=== PATIENT | female | born 1975 | race Caucasian/White ===

== ENCOUNTER 2018-05-30 07:12 | Observation (INO) | payer OTHER ==
[~2018-05-30 07:12] MED LIST: Buffered Lidocaine 0.9% SYRIN* 5 ML/SYR SYRINGE INTRADERM ONE; Dexamethasone IV* 4 MG/ML 1 ML (4 MG) IV SLOW PU ONE; Famotidine IV* 10 MG/ML 2 ML (20 mg) IV ONE
[2018-05-30] MEDS ORDERED: Famotidine IV* 10 MG/ML 2 ML (20 mg) ONE (07:19)
[2018-05-30] MEDS ORDERED: Dexamethasone IV* 4 MG/ML 1 ML (4 MG) ONE (07:19)
[2018-05-30] MEDS ORDERED: ceFAZolin 2 GM in NS PREMIX(*) 2 GM/100 ML BAG IVPB ONE (07:20)
[2018-05-30] MEDS ORDERED: Lidocaine 1% MPF wEPI 200,000* 30 ML SDV ONE (08:06)
[2018-05-30] MEDS ORDERED: Thrombin 5,000 UNITS* 1 APPLIC KIT - topical use - TOPICAL ONE (08:06)
[2018-05-30] MEDS ORDERED: Bacitracin IV* 50,000 UNITS INJ ONE (08:07)
[2018-05-30] MEDS ORDERED: Propofol* 10 MG/ML 20 ML BTL IV PUSH ONE (08:19)
[2018-05-30] MEDS ORDERED: Midazolam* 1 MG/ML 5 ML VIAL (5 MG) ONE (08:19)
[2018-05-30] MEDS ORDERED: fentaNYL* 50 MCG/ML 5 ML VIAL (250 MCG VIAL) ONE (08:19)
[2018-05-30] MEDS ORDERED: Ondansetron INJ* 2 MG/ML VIAL ONE (08:19)
[2018-05-30] MEDS ORDERED: Atracurium* 10 MG/ML 10 ML VIAL ONE (08:19)
[2018-05-30] MEDS ORDERED: Lidocaine 2% PF * 5 ML VIAL ONE (08:19)
[2018-05-30] MEDS ORDERED: EPHEDrine (Pressors)* 50 MG/ML VIAL ONE (09:14)
[2018-05-30] MEDS ORDERED: DiMENhydriNATE IV* 50 MG/ML VIAL IV PUSH PRN (09:46)
[2018-05-30] MEDS ORDERED: Naloxone* 0.4 MG/ML 1 ML VIAL IV PRN (09:46)
[2018-05-30] MEDS ORDERED: HYDROmorphone INJ1* 1 MG/ML SYRINGE IV PRN (09:46)
[2018-05-30] MEDS ORDERED: Scopolamine 1.5 mg* PATCH TRANSDERM PRN (09:46)
[2018-05-30] MEDS ORDERED: oxyCODONE/Acetamin 5/325 MG* TAB PO PRN ×2 (09:46→21:43)
[2018-05-30] MEDS ORDERED: fentaNYL* 50 MCG/ML 2 ML VIAL (100 MCG VIAL) IV PRN (09:46)
[2018-05-30] MEDS ORDERED: Ondansetron INJ* 2 MG/ML VIAL IV PRN (09:46)
[2018-05-30] MEDS ORDERED: fentaNYL* 50 MCG/ML 2 ML VIAL (100 MCG VIAL) ONE (09:57)
[2018-05-30] MEDS ORDERED: Magnesium Hydroxide LIQ* 30 ML UDC PO PRN (11:03)
[2018-05-30] MEDS ORDERED: HYDROcodone/ACETAMIN 5-325 MG* 1 TAB PO PRN ×2 (11:03)
--- NOTE | 2018-05-30 11:11 | RAD ---
INDICATION: Lumbar discectomy COMPARISONS: MRI dated May 15, 2018 TECHNIQUE: Fluoroscopy was provided for a surgical procedure. Total fluoroscopy time is: 17.7 seconds FINDINGS: Spot images demonstrate a metallic probe at L5-S1 counting from L5 as the last lumbar type vertebral body. IMPRESSION: FLUOROSCOPY WAS PROVIDED FOR A SURGICAL PROCEDURE CPT II Codes: G9500
[2018-05-30] MEDS ORDERED: Cyclobenzaprine TAB* 10 MG PO PRN (11:55)
[2018-05-30] MEDS ORDERED: Zolpidem TAB* 10 MG PO PRN (21:00)
[2018-05-30] MEDS ORDERED: Ketorolac INJ* 30 MG/ML 1 ML VIAL IV PRN (21:05)
[2018-05-30] MEDS: Diazepam TAB(*) 5 MG PO PRN (22:01)
[2018-05-30] MEDS: oxyCODONE/Acetamin 5/325 MG* TAB PO PRN (22:01)
[2018-05-30] MEDS ORDERED: NS 0.9% 1000 ML* 1,000 ML IV ONE (22:54)
[2018-05-31 00:09] LABS: ABS Basophils 0 10^3/ul (0-0.2); ABS Eosinophils 0 10^3/ul (0-0.6); ABS Lymphocytes 1.2 10^3/ul (1.0-4.8); ABS Monocytes 0.9 10^3/ul (0-0.8); ABS Neutrophils 8.8 10^3/ul (1.5-7.7); ABS Nucleated RBC 0 10^3/ul; Eosinophil % 0 % (0-6); Hematocrit 32 % (35-47); Hemoglobin 11.1 g/dl (12.0-16.0); Mean Corpuscular HGB Conc 35 g/dl (31-36); Mean Corpuscular Hemoglobin 32 pg (27-31); Mean Corpuscular Volume 91 fL (80-97); Mean Platelet Volume 10.8 um3 (7.4-10.4); Nucleated Red Blood Cells % 0; Platelet Count 117 10^3/ul (150-450); Red Blood Count 3.48 10^6/ul (4.00-5.40); Red Cell Distribution Width 12 % (10.5-15); White Blood Count 10.9 10^3/ul (3.5-10.8)
--- NOTE | 2018-05-31 02:32 | CONS ---
CC: Dr. Val Hamilton; Dr. Delaney * CONSULTATION REPORT: DATE OF CONSULT: 05/30/18 PRIMARY CARE PROVIDER: Dr. Val Hamilton. MY ATTENDING PHYSICIAN WHILE IN THE HOSPITAL: Marianna Zaldivar DO (report dictated by Otis Velasco NP). REQUESTING PHYSICIAN IN CONSULT: Dr. Delaney. REASON FOR MEDICAL CONSULT: Rash. HISTORY OF PRESENT ILLNESS: Mrs. Almendarez is a 43-year-old female patient who previously was healthy with the exception that she has a history of PFO. She presented to Dr. Delaney' care today for an elective diskectomy at L5-S1, which she underwent today. Postoperatively, she has been having a fair amount of pain near the incision site and having some pain going down her right lower extremity, but she says that this has somewhat improved from what she has been dealing with for sometime about 45 minutes after taking some pain medications, she was on [place], but she normally takes Percocet at home. She also took a Flexeril 45 minutes or so. After taking this, she noted that her face had become flushed, particularly in her cheeks area and around her nose and that she said she felt hot. She denied having any sores in her mouth. Denied having any other areas of erythema. She also previously to having this had just washed her face with a washcloth because she had been crying because she was in so much pain. She says that there is no itching or sensation of itching. She says that she does not know of any spread of the rash anywhere else to her. She denies having any irritation to her eyes and denied having any open sores again in the mouth and says that she is not having any trouble breathing and says that she does not feel like the throat is closing. There was concern because of the rash and we were asked to evaluate. PAST MEDICAL HISTORY: Significant for a PFO. PAST SURGICAL HISTORY: She has had an appendectomy and tonsillectomy and now she has had a L5-S1 diskectomy. MEDICATIONS: Home meds include: 1. Percocet two tablets every 4 hours as needed. 2. Lidoderm one application topically as instructed. 3. Diazepam 5 mg p.o. daily. 4. Valacyclovir 1000 mg p.o. as directed. ALLERGIES TO MEDICATIONS: Include no known drug allergies. FAMILY HISTORY: Reviewed. She said that her parents do not have any trouble with heart disease. They have never had strokes or cancers. She says both her parents are healthy. SOCIAL HISTORY: She does not smoke. She is fairly active. She is a [employer] of a local [employer]. She is . Surrogate decision maker is her . REVIEW OF SYSTEMS: There is no documented fever. She denied having any significant weight change. There is no double vision. She denies having any ear discharge. There is no rhinorrhea, no sore throat, and no thyroid enlargement. She denied having any chest pain. There is no orthopnea. There is no exertional dyspnea. There was no abdominal pain. There is no nausea, no vomiting. There is no dysuria. There is no frequency. There is no seizure, no loss of consciousness. Again, there is no pruritus reported or skin ulcerations. Review of 14 systems completed and all others negative. PHYSICAL EXAM: Blood pressure 117/58 with a pulse of 57, respirations 18, O2 saturation 97%, and temperature of 98.0. General: At this time, Mrs. Almendarez is a 43-year-old female patient. She appears to be well nourished and well developed. She does not appear to be in any acute distress. HEENT: Head atraumatic and normocephalic. Eyes: EOMs are intact. Sclerae anicteric and not pale. Neck was supple. Throat: Oral mucosa appears to be moist. No oropharyngeal erythema. Heart sounds S1 and S2. Regular rate and rhythm. No murmurs, rubs, or gallops. Lungs: Clear to auscultation. No wheezes, rales, or rhonchi. Abdomen: Soft, flat, and nontender. Bowel sounds are present. Extremities: Pulses were 2+ throughout. She is moving all 4 extremities with 5 /5 strength. Neurologically, she is awake, alert, and oriented x3. She had no gross focal deficits. Skin: She does have a blanchable erythema noted to the cheeks and across the bridge of the nose. I did not appreciate any papules or pustules. At this point, she has no other areas of rash. She has an incision to the lower lumbar spine, which is covered with dressing, clean, dry, and intact. LABORATORY DATA: Preop WBC 7.5, RBC of 4.45, hemoglobin of 14.0, hematocrit of 41, platelet count 160. INR was 1.1. Sodium of 140, potassium 4.5, chloride 106, bicarb 27, BUN 9, creatinine 0.64. Urine preop negative. Old medical records reviewed. ASSESSMENT AND PLAN: Mrs. Almendarez is a 43-year-old female patient coming into Dr. Delaney' service for an elective L5-S1 diskectomy. Postoperatively, it was noted that she had a rash, so we were asked to evaluate in consult. Recommendations at this point are: 1. Status post L5-S1 diskectomy, defer the management to Dr. Delaney. 2. Rash. Etiology is unclear. Again, there is no pruritus associated with this. She is sparing her mucus membranes. It is blanchable. I question if this is secondary to irritation from detergents that may have been in the washcloth, possibly reaction to the medications. I have switched her back to her Valium and her Percocet. I would like to observe and monitor should it spread out. I have a low threshold to start antihistamines and possible steroids. I will check a CBC, CMP, ESR, and CRP tomorrow and I will continue to monitor, so probably she may need followup. If symptoms persist, follow up with her PCP and possible Dermatology. At this point, there is again no blistering noted. No sloughing of the skin, again it is blanchable, so we will continue to monitor. 3. DVT prophylaxis. Defer to the primary team. 4. Fluids, electrolytes, and nutrition. She can have a regular diet. 5. Code status. Full code. TIME SPENT: Time spent on consult 60 minutes, greater than half time was spent [id number] with the patient obtaining my history and physical; other half time spent going over the plan of care with the patient and implementing the plan of care. I discussed the plan of care with my attending Dr. Zaldivar, who is in agreement. OTIS VELASCO, CANDICE [id number]/[facility] #: [id number] THADDEUS
--- NOTE | 2018-05-31 04:36 | OP ---
DATE OF OPERATION: 05/30/18 - ROOM #347 DATE OF : 77 SURGEON: Edgar Delaney MD POWER SCREWDRIVER OPERATOR: Yanna Hutson PRE-OP DIAGNOSIS: Right L5-S1 herniated nucleus pulposus. POST-OP DIAGNOSIS: Right L5-S1 herniated nucleus pulposus. OPERATIVE PROCEDURE: The patient underwent a right L5-S1 microdiskectomy. ESTIMATED BLOOD LOSS: 10 mL. COMPLICATIONS: None. INDICATIONS: The patient is a very pleasant 43-year-old female with complaints of back pain radiating to the right lower extremity with MRI findings consistent with a large right L5-S1 herniated nucleus pulposus. After failing conservative treatment modalities, the patient was offered the option of surgical intervention in the form of right L5-S1 diskectomy. Risks and benefits , expectations and possible complications of the procedure were discussed in detail with the patient and her with complications including, but not limited to, bleeding, infection, risk of injury to adjacent structures, paralysis, , need for additional procedures, anesthesia risk, stroke, blindness, cancer, instability, spinal fluid leak and need for prolonged ICU stay. The patient understood that her condition might not improve and in fact may get worse after the surgery and that she may need to have additional procedure in the future. She also understood that operative plan may be modified according to the intraoperative findings and conditions. DESCRIPTION OF PROCEDURE: The patient was brought to the operating room and was placed under general anesthesia by the anesthesia team. She was carefully positioned prone on the Arnold frame on the José Miguel table and all bony prominences were meticulously padded. Her skin was prepped and draped in the standard fashion. After appropriate surgical pause and patient identification, the above surgical level was identified with the use of intraoperative fluoroscopic imaging. A small paramedian incision towards the right of the midline was marked on the skin over the L5-S1 disk space and the skin was infiltrated with local anesthetic. A #10 surgical blade was used to incise the skin. The incision was carried down to the dorsal fascia and over a series of dilators, the METRx tubular retractor system was introduced. Operative films confirmed excellent placement of the retractor system. The intraoperative microscope was brought into the field and the right lamina of L5 and the middle part of L5-S1 facet was carefully exposed. A small laminotomy of the right lamina of L5 and a removal of a very small portion of the medial facet was performed with the use of high-speed drill. The ligamentum flavum was gently removed with Kerrison punches in the thecal sac and the right S1 nerve root was readily identified. After gentle retraction medially, a large disk herniation was identified which caused significant pressure on the nerve root, as expected from the preoperative MRI. After gentle retraction of the thecal sac and the nerve root medially with a nerve root retractor, a fragmentectomy and diskectomy was performed with the use of pituitary rongeurs after incising the annulus fibrosus with #10 surgical blade. Intraoperative fluoroscopic imaging confirmed the appropriate surgical level. After copious irrigation and confirmation of meticulous hemostasis and meticulous inspection of the wound, the tubular retractor was gently removed. After confirmation of meticulous hemostasis and copious irrigation, the wound was then closed by layers with 0 interrupted Vicryl suture to approximate the dorsal fascia, while the subcutaneous tissue was approximated with interrupted 2-0 Vicryl sutures. The skin was covered with Dermabond. At the end of the procedure, all counts were reported to be correct. The patient remained hemodynamically stable throughout the case. The patient was then turned supine, was extubated and was transferred to Recovery in excellent condition. [id number]/[facility] #: [id number] MTDMaye
[2018-05-31] MEDS: oxyCODONE/Acetamin 5/325 MG* TAB PO PRN ×5 (05:15→21:38)
[2018-05-31 05:57] LABS: ABS Basophils 0 10^3/ul (0-0.2); ABS Eosinophils 0.1 10^3/ul (0-0.6); ABS Lymphocytes 1.8 10^3/ul (1.0-4.8); ABS Monocytes 0.9 10^3/ul (0-0.8); ABS Neutrophils 8.5 10^3/ul (1.5-7.7); ABS Nucleated RBC 0 10^3/ul; Eosinophil % 0.5 % (0-6); Hematocrit 33 % (35-47); Hemoglobin 11.4 g/dl (12.0-16.0); Mean Corpuscular HGB Conc 35 g/dl (31-36); Mean Corpuscular Hemoglobin 31 pg (27-31); Mean Corpuscular Volume 91 fL (80-97); Mean Platelet Volume 11.6 um3 (7.4-10.4); Nucleated Red Blood Cells % 0; Platelet Count 124 10^3/ul (150-450); Red Blood Count 3.65 10^6/ul (4.00-5.40); Red Cell Distribution Width 12 % (10.5-15); White Blood Count 11.2 10^3/ul (3.5-10.8)
[2018-05-31 06:14] LABS: EGFR Non-African American 126.5 (>60)
--- NOTE | 2018-05-31 11:31 | PN ---
Progress Note - Progress Note Date of Service: 05/31/18 SOAP: Subjective: []No events ON. Tolerated procedure well yesterday. Preop RLE pain and weakness resolved. Some c/o incisional pain. Ambulates, Voids, Tolerates PO well. Reported rash yesterday. IM consulted, Appreciate care. No rash this am. Objective: []VSS, Afebrile. Wound s,c,d AAOx3 RENEE, CN II-XII grossly intact. Motor 5/5 all extremities. Sensory grossly intact to light touch. Assessment: []43 yof POD#1 Rt L5-S1 MIS discectomy Plan: []Monitor VS, Neurochecks Encourage ambulation. Emphasised importance of early ambulation. PT consulted. Encourage use of IS. Monitor BP. DVT prophylaxis. DC planning. Appreciate IM care. Van Delaney MD
--- NOTE | 2018-05-31 17:30 | PN ---
Subjective Date of Service: 05/31/18 Interval History: Patient is in significant pain in back without radiculopathy. Patient states pain is minimal at rest but will go up to 9/10 with walking and is only at incision site. Patient has been getting dizzy and feeling fatigued when standing. Patient denies CP, SOB, N/V, abdominal pain, diarrhea, dysuria, palpitations, or other pain. Patient's rash has entirely resolved. Family History: Unchanged from Admission Social History: Unchanged from Admission Past Medical History: Unchanged from Admission Objective Active Medications: Diazepam (Valium Tab(*)) 5 mg PO Q8H PRN PRN Reason: ANXIETY Last Admin: 05/30/18 22:01 Dose: 5 mg Lactated Ringer's (Lactated Ringers 1000 Ml Bag*) 1,000 mls @ 0 mls/hr IV WIDE OPEN ETHAN Stop: 05/31/18 23:59 Last Admin: 05/31/18 09:44 Dose: 999 mls/hr Lactated Ringer's (Lactated Ringers 1000 Ml Bag*) 1,000 mls @ 75 mls/hr IV PER RATE [facility] Last Admin: 05/31/18 11:24 Dose: 75 mls/hr Ketorolac Tromethamine (Toradol Inj*) 30 mg IV ONCE PRN PRN Reason: PAIN Magnesium Hydroxide (Milk Of Magnesia Liq*) 30 ml PO DAILY PRN PRN Reason: CONSTIPATION Oxycodone/Acetaminophen (Percocet 5/325 Tab*) 2 tab PO Q4H PRN PRN Reason: PAIN Last Admin: 05/31/18 13:46 Dose: 2 tab Oxycodone/Acetaminophen (Percocet 5/325 Tab*) 1 tab PO Q4H PRN PRN Reason: PAIN Pharmacy Profile Note (Scopolamine Patch Remove*) 1 note PATCH OFF Q72H [facility] Scopolamine (Transderm-Scop 1.5 Mg Patch*) 1 patch TRANSDERM Q72H PRN PRN Reason: Nausea/Vomiting Zolpidem Tartrate (Ambien Tab*) 10 mg PO BEDTIME PRN PRN Reason: INSOMNIA Vital Signs - 8 hr 05/31/18 05/31/18 05/31/18 09:30 09:44 09:55 Temperature Pulse Rate Respiratory 16 16 16 Rate Blood Pressure (mmHg) O2 Sat by Pulse 100 Oximetry 05/31/18 05/31/18 05/31/18 12:04 12:06 12:08 Temperature 97.5 F Pulse Rate 57 64 81 Respiratory 16 16 17 Rate Blood Pressure 104/59 104/69 105/68 (mmHg) O2 Sat by Pulse 97 100 100 Oximetry 05/31/18 05/31/18 05/31/18 12:33 13:46 15:17 Temperature 97.5 F Pulse Rate 48 Respiratory 16 16 16 Rate Blood Pressure 95/57 (mmHg) O2 Sat by Pulse 98 Oximetry 05/31/18 16:00 Temperature Pulse Rate Respiratory Rate Blood Pressure (mmHg) O2 Sat by Pulse 98 Oximetry Oxygen Devices in Use Now: None Appearance: Patient is a 43yo female who appears stated age and is sitting in the bed in NAD. Eyes: No Scleral Icterus, PERRLA Ears/Nose/Mouth/Throat: NL Teeth, Lips, Gums, Clear Oropharnyx, Mucous Membranes Moist Neck: NL Appearance and Movements; NL JVP, Trachea Midline Respiratory: Symmetrical Chest Expansion and Respiratory Effort, Clear to Auscultation Cardiovascular: NL Sounds; No Murmurs; No JVD, RRR, No Edema Abdominal: NL Sounds; No Tenderness; No Distention, No Hepatosplenomegaly Lymphatic: No Cervical Adenopathy Extremities: No Edema, No Clubbing, Cyanosis Skin: No Nodules or Sclerosis, - - Lumbar incision covered with CDI dressing. Neurological: Alert and Oriented x 3, NL Sensation, NL Muscle Strength and Tone , - - CN II-XII intact. Normal reflexes. Result Diagrams: 05/31/18 05:19 05/31/18 05:18 Assess/Plan/Problems-Billing Assessment: Patient is a 43yo female with a PMH only for PFO and lumbar radiculopathy who is S/P microdiscectomy and is progressing with a post-op course complicated by hypotension and transient rash. - Patient Problems (1) Post-operative state Current Visit: Yes Status: Acute Code(s): Z98.890 - OTHER SPECIFIED POSTPROCEDURAL STATES SNOMED Code(s): 81425861 Comment: - Management per primary team - PT, Bowel regimen, pain control - Progressing well. (2) Hypotension Current Visit: Yes Status: Acute Comment: - Likely post-operative complication from medications - Continue fluids. - Patient is not orthostatic - Patient is symptomatic and it is interfering with post-op progression. (3) Rash Current Visit: Yes Status: Acute Code(s): R21 - RASH AND OTHER NONSPECIFIC SKIN ERUPTION SNOMED Code(s): 634121041 Comment: - Transient, probably drug or contact related - Monitor for recurrence, no specific treatment. (4) PFO (patent foramen ovale) Current Visit: Yes Status: Acute Code(s): Q21.1 - ATRIAL SEPTAL DEFECT SNOMED Code(s): 684127958 Comment: - Noted (5) DVT prophylaxis Current Visit: Yes Status: Acute Code(s): EWU5918 - SNOMED Code(s): 480956467 Comment: - SCDs and ambulation (6) Full code status Current Visit: Yes Status: Acute Code(s): Z78.9 - OTHER SPECIFIED HEALTH STATUS SNOMED Code(s): 174714689 Status and Disposition: Inpatient.
[2018-05-31] MEDS: Diazepam TAB(*) 5 MG PO PRN (21:38)
[2018-06-01] MEDS: oxyCODONE/Acetamin 5/325 MG* TAB PO PRN ×3 (02:22→12:10)
[2018-06-01 06:07] LABS: ABS Basophils 0 10^3/ul (0-0.2); ABS Eosinophils 0.1 10^3/ul (0-0.6); ABS Lymphocytes 3.1 10^3/ul (1.0-4.8); ABS Monocytes 0.7 10^3/ul (0-0.8); ABS Neutrophils 4.8 10^3/ul (1.5-7.7); ABS Nucleated RBC 0 10^3/ul; Eosinophil % 0.9 % (0-6); Hematocrit 35 % (35-47); Lymphocyte % 35.8 % (25-47); Mean Corpuscular HGB Conc 34 g/dl (31-36); Mean Corpuscular Hemoglobin 32 pg (27-31); Mean Corpuscular Volume 93 fL (80-97); Mean Platelet Volume 11.3 um3 (7.4-10.4); Nucleated Red Blood Cells % 0.1; Platelet Count 131 10^3/ul (150-450); Red Blood Count 3.74 10^6/ul (4.00-5.40); Red Cell Distribution Width 12 % (10.5-15); White Blood Count 8.7 10^3/ul (3.5-10.8)
[2018-06-01 06:26] LABS: EGFR Non-African American 107.6 (>60)
[2018-06-01 07:39] VITALS: BP 93/53
--- NOTE | 2018-06-01 11:53 | PN ---
Progress Note - Progress Note Date of Service: 06/01/18 SOAP: Subjective: []No events ON. Feels much better today. Preop RLE pain and weakness resolved. Some c/o incisional pain. Ambulates well, Voids, Tolerates PO well.Flatus +. No rash this am. Objective: [] VSS, Afebrile. Wound s,c,d AAOx3 RENEE, CN II-XII grossly intact. Motor 5/5 all extremities. Sensory grossly intact to light touch. Assessment: []43 yof POD#2 Rt L5-S1 MIS discectomy Plan: [] Monitor VS, Neurochecks Encourage ambulation. IS. DC today. Appreciate IM care. Van Delaney MD
--- NOTE | 2018-06-01 15:10 | DS ---
DISCHARGE SUMMARY: DATE OF ADMISSION: 05/30/18 DATE OF DISCHARGE: 06/01/18 ADMISSION DIAGNOSIS: Right L5-S1 herniated nucleus pulposus. DISCHARGE DIAGNOSES: Right L5-S1 herniated nucleus pulposus. PROCEDURE: The patient underwent right L5-S1 microdiskectomy. DISPOSITION: Home CONDITION ON DISCHARGE: Good. HOSPITAL COURSE: The patient is a very pleasant 43-year-old female with complaints of back pain radiating to the right lower extremity. The patient was found to have right-sided radiculopathy and MRI finding consistent with a large right L5-S1 herniated nucleus pulposus. After failing conservative treatment modalities, the patient was offered the option of surgical intervention and she underwent the right L5-S1 microdiskectomy on 05/30/18. She tolerated the procedure well, was able to be transferred to the floor. The patient continued to improve. Because of presence of the facial rash, Internal Medicine was consulted. The patient improved, was able to ambulate and tolerate p.o. well and void. Her preoperative right lower extremity pain had completely resolved, as well as her weakness and numbness. Because of her relatively low pressure, she was given IV fluids. The patient underwent evaluation by Physical Therapy and on postoperative day 2, she was doing very well, was able to ambulate without difficulties, and was anxious to go home. The patient was cleared by Internal Medicine also for her discharge and she was given full discharge instructions, as well as prescriptions for pain medications and muscle relaxants were sent electronically to [facility]. DISPOSITION: Home. [id number]/[facility] #: [id number] MTDD
[2018-06-02] MEDS ORDERED: Scopolamine PATCH Remove* 1 NOTE MISC PATCH OFF SCH (09:24)
== END 2018-06-01 12:46 | disposition home or self-care (01) ==
LOC: OR 07:12 → SSU 12:08
PROVIDERS: ADMIT Neurological Surgery; ATTEND Neurological Surgery
PROC: 0SB20ZZ Excision of Lumbar Vertebral Disc, Open Approach (ICD-10-PCS; 2018-05-30)
PROC: 01NB0ZZ Release Lumbar Nerve, Open Approach (ICD-10-PCS; principal; 2018-05-30 08:30)
DX: M51.17 Intervertebral disc disorders with radiculopathy, lumbosacral region (principal); I95.9 Hypotension, unspecified; R21 Rash and other nonspecific skin eruption; Q21.1 Atrial septal defect; Z79.899 Other long term (current) drug therapy
CPT/HCPCS: 36415; 76001; 80048; 80053; 81025; 85025; 85652; 86140; A9270-GY; G0378; J0690; J1100; J2001; J2250; J2405; J2704; J3010